=== PATIENT | female | born 1945 | race Caucasian/White ===

== ENCOUNTER 2016-11-08 05:50 | Day surgery (SDC) | payer OTHER ==
[~2016-11-08] VITALS: Ht 147.3 cm; Wt 89.6 kg
[2016-11-08] MEDS ORDERED: LORazepam 1 MG TAB SL SCH (06:15)
[2016-11-08] MEDS ORDERED: Hold AM Insulin & AM Hypoglycemic medications in diabetic patients XX PRN (06:15)
[2016-11-08] MEDS ORDERED: SODIUM CHLORID 0.9% 500 ML IV SCH (06:15)
[2016-11-08] MEDS ORDERED: ceFAZolin 2 GM PREMIX 50 ML IV SCH (06:15)
[2016-11-08] MEDS ORDERED: MUPIROCIN 2% OINT 1 APPLIC/GM SYR NASAL SCH (06:15)
[2016-11-08] MEDS ORDERED: CHLORHEXIDINE GLUCONATE 2 % 1 PACK (2 CLOTHS) TOP SCH (06:15)
[2016-11-08] MEDS ORDERED: INSULIN HUMAN REGULAR 1,000 UNITS/10 ML VIAL SQ PRN (06:15)
[2016-11-08] MEDS ORDERED: LACTATED RINGER'S 1000 ML IV SCH (06:15)
[2016-11-08] MEDS ORDERED: NS 1000 ML IV SCH (06:15)
[2016-11-08] MEDS ORDERED: POVIDONE IODINE 5% (ANTISEPSIS KIT) 4 APPLICATIONS EACH NARE SCH (06:15)
[2016-11-08] MEDS ORDERED: NO Heparin, Lovenox, Coumadin at least 12 hours prior to procedure. XX PRN (06:15)
[2016-11-08 06:32] VITALS: BP 131/72; PULSE 53; RESP 18; TEMP 97.8; O2SAT 97
[2016-11-08] MEDS ORDERED: WARF4TAB52 PO (06:40)
[2016-11-08] MEDS ORDERED: ISOS60TA PO (06:40)
[2016-11-08] MEDS ORDERED: COZA100T PO ×2 (06:40)
[2016-11-08] MEDS ORDERED: CYMB60CA PO (06:40)
[2016-11-08] MEDS ORDERED: ATOR40TA16 PO (06:40)
[2016-11-08] MEDS ORDERED: METO50TA PO (06:40)
[2016-11-08] MEDS ORDERED: POTA-243 PO (06:40)
[2016-11-08] MEDS ORDERED: DICL75TA PO (06:40)
[2016-11-08] MEDS ORDERED: BACL10TA PO (06:40)
[2016-11-08] MEDS ORDERED: OMEP20TA PO (06:40)
[2016-11-08] MEDS ORDERED: FURO40TA PO (06:40)
[2016-11-08 06:45] LABS: AUTOMATED NEUTROPHIL # 4.1 TH/MM3 (1.8-7.7); BASOPHIL % 0.5 % (0.0-2.0); EOSINOPHIL # 0.1 TH/MM3 (0-0.4); EOSINOPHIL % 1.7 % (0.0-4.0); HEMATOCRIT 36.6 % (35.0-46.0); HEMO FLAGS DIFF FINAL; LYMPH % 30.8 % (9.0-44.0); LYMPHOCYTE # 2.3 TH/MM3 (1.0-4.8); MEAN CELL VOLUME 94.5 FL (80.0-100.0); MEAN CORPUSCULAR HEMOGLOBIN 31.3 PG (27.0-34.0); MEAN CORPUSCULAR HGB CONC 33.1 % (32.0-36.0); MONO % 11.6 % (0.0-8.0); NEUT % 55.4 % (16.0-70.0); PLATELET COUNT 233 TH/MM3 (150-450); RED BLOOD COUNT 3.87 MIL/MM3 (4.00-5.30); RED CELL DISTRIBUTION WIDTH 14.9 % (11.6-17.2); WHITE BLOOD COUNT 7.5 TH/MM3 (4.0-11.0)
[2016-11-08 06:52] LABS: APTT (PATIENT) 33.7 SEC (24.3-30.1); INTERNATIONAL NORMALIZED RATIO 2.1 RATIO; PROTHROMBIN TIME - PATIENT 23.4 SEC (9.8-11.6)
[2016-11-08 07:05] LABS: POTASSIUM 4.2 MEQ/L (3.5-5.1)
[2016-11-08] MEDS ORDERED: VANCOMYCIN 500 MG VIAL ONE (07:39)
[2016-11-08] MEDS ORDERED: LIDOCAINE HCL 2% 50 ML VIAL ONE (07:40)
[2016-11-08] MEDS ORDERED: SODIUM CHLOR 0.9% 250 ML INJ 250 ML ONE (07:40)
[2016-11-08] MEDS ORDERED: VANCOMYCIN HCL 1000 MG VIAL ONE (07:40)
[2016-11-08] MEDS ORDERED: ceFAZolin INJ 1,000 MG VIAL ONE (07:40)
--- NOTE | 2016-11-08 08:20 | PD.CARD ---
PPM GENERATOR REPLACEMENT PROCEDURE DATE: Nov 08, 2016 PPM GENERATOR REPLACEMENT PROC PROCEDURE PERFORMED Permanent pacemaker removal, permanent pacemaker replacement, pocket revision. Ms. Guerrier is a 71 -year-old female with history of bradycardia, previous PPM implanted in 2009, generator CAITY, admitted for pacemaker generator replacement. The risks, the nature and the benefit of the procedure were clearly stated to her. The risks include pneumothorax, cardiac perforation, stroke and even . The patient understood and agreed to proceed. PROCEDURE After written informed consent was obtained, the patient was brought to the EP lab where was prepped and draped in the sterile fashion. Conscious sedation was initiated using intravenous Versed and introducer intravenous fentanyl. Once sedation was verified, the left infraclavicular area over the generator was anesthetized with 2% Xylocaine. Using a #11 scalpel, a 3 centimeter incision was made over the existing generator. Dissection was then taken down to deep fascial layer using Bovie cautery and blunt dissection. Once exposed, the generator was removed from the pocket. The pocket was expanded. Scar tissue was removed around the leads. Then, the leads were disconnected and tested. At that point, the pocket was copiously irrigated using antibiotic solution. The leads were connected to the new generator and placed into the pocket. The pacemaker was interrogated. She was A-sensing, V-pacing. I did proceed with wound closure. The deep fascial layer was approximated with 2-0 Vicryl suture in a continuous fashion. The subcutaneous layer was approximated with 2-0 Vicryl suture in a continuous fashion. Dermabond adhesive was applied to the wound followed by a sterile pressure dressing. There was no complication. The patient tolerated procedure. Blood loss minimal. EXPLANTED HARDWARE The explanted permanent pacemaker is a [employer]. Model # Cyclos DR serial number [id number]. For information about the existing leads, please refer to previous dictation. IMPLANTED HARDWARE The implanted permanent pacemaker is a [employer] model number 076430, serial number [id number]. THRESHOLDS The right atrial pacing threshold in bipolar mode was 0.6 volt at 0.5 milliseconds. Lead impedance 390 ohms and P wave at 2.6 millivolts. The right ventricular pacing threshold in bipolar mode was 0.8 volts at 0.5 milliseconds. Lead impedance 450 ohms. R wave 9.6mv. SETTINGS The device is set in a DDD50. Upper limit 120 beats per minute. Hysteresis and mode switch are on. CONCLUSIONS Successful permanent pacemaker removal, permanent pacemaker implantation, pocket revision. COMMENT AND RECOMMENDATIONS The patient will be transferred to the telemetry unit. She will be observed. The patient will be discharged home later on today. Chuck Hall MD Nov 08, 2016 08:20
[2016-11-08] MEDS ORDERED: CEPH-460 PO (08:23)
[2016-11-08] MEDS ORDERED: ACETAMINOPHEN/CODEINE 300 MG/30 MG TAB PO PRN ×2 (08:30)
[2016-11-08] MEDS ORDERED: SODIUM CHLORIDE 0.9% FLUSH 5 ML FLUSH IVF PRN (08:30)
[2016-11-08] MEDS ORDERED: diphenhydrAMINE HCL 50 MG/ML VIAL ONE ×2 (08:53→10:04)
[2016-11-08] MEDS ORDERED: SODIUM CHLORIDE 0.9% FLUSH 5 ML FLUSH IVF SCH (09:00)
[2016-11-08] MEDS ORDERED: DO NOT ADM ANY ANTICOAGULANT DRUGS XX PRN (09:00)
[2016-11-08] MEDS ORDERED: PROPOFOL 200 MG/20 ML AMP IV ONE (10:54)
== END 2016-11-08 10:30 | disposition home or self-care (01) ==
LOC: HDOC 05:50 → HDIC 05:51 → HDOC 10:30
PROVIDERS: ATTEND Internal Medicine Interventional Cardiology
DX: Z45.010 Encounter for checking and testing of cardiac pacemaker pulse generator [battery] (principal); I49.5 Sick sinus syndrome; I25.10 Atherosclerotic heart disease of native coronary artery without angina pectoris; I10 Essential (primary) hypertension; E78.5 Hyperlipidemia, unspecified; E66.01 Morbid (severe) obesity due to excess calories; Z68.41 Body mass index [BMI] 40.0-44.9, adult; Z79.01 Long term (current) use of anticoagulants; Z98.84 Bariatric surgery status
CPT/HCPCS: 00400; 33228; 80048; 85025; 85610; 85730; C1785; J0690; J1200; J3370; J7050